=== PATIENT | female | born 1980 | race Caucasian/White ===

== ENCOUNTER 2018-01-16 09:27 | Emergency (ER) | payer BC ==
[2018-01-16] MEDS: KETOROLAC 60 MG/2 ML VIAL (J1885) IM (09:57)
== END 2018-01-16 11:40 | disposition home or self-care (01) ==
LOC: M ED 09:27
DX: R07.89 Other chest pain (principal); M54.9 Dorsalgia, unspecified; Z79.899 Other long term (current) drug therapy
CPT/HCPCS: J1885

== ENCOUNTER 2018-05-02 04:43 | Emergency (ER) | payer OTHER, BC ==
[2018-05-02] MEDS: GI COCKTAIL 50ML BTL(HYOSCYAMINE/MAALOX/LIDOCAINE VISCOUS)(1:3:1) PO (05:46)
[2018-05-02] MEDS: SUCRALFATE 1 GM TAB PO (06:23)
[2018-05-02] MEDS: OMEPRAZOLE 20 MG CAP PO (06:23)
[2018-05-02] MEDS: FAMOTIDINE 20 MG TAB PO (06:23)
== END 2018-05-02 06:23 | disposition home or self-care (01) ==
LOC: M ED 04:43
DX: R10.13 Epigastric pain (principal); M54.9 Dorsalgia, unspecified; Z72.0 Tobacco use; Z79.899 Other long term (current) drug therapy
CPT/HCPCS: 99282

== ENCOUNTER → 2019-05-01 | Outpatient (REF) | payer OTHER, BC ==
[~2019-05-01] MED LIST: CARA1TAB6 PO; CYCL10TA; FAMO20TA PO; HYDR-3715 PO; MOBI4TAB PO; NORC1TAB7; OMEP40CA2 PO; [UNRECOGNIZED DRUG - CODE]
== END ==
LOC: M LABDRAW1 12:00
PROVIDERS: ATTEND Physical Medicine & Rehabilitation
DX: M51.36 Other intervertebral disc degeneration, lumbar region (principal)

== ENCOUNTER → 2025-07-20 | Outpatient (REF) | payer BC ==
[~2025-07-20] MED LIST changes: +CYCL-707; -CYCL10TA; -OMEP40CA2 PO; +OMEP40CA4 PO
[2025-07-20 16:31] LABS: CPK CREATINE PHOSPHOKINASE 147 U/L (34-145); IRON (FE) 109 UG/DL (50-170); MAGNESIUM LEVEL 2.0 MG/DL (1.8-2.4); PERCENT SATURATION 28.7 % (13.2-45.0); PHOSPHORUS LEVEL 3.8 MG/DL (2.5-4.9); TOTAL 25(OH) VITAMIN D 23.2 NG/ML (20.0-100.0)
[2025-07-20 16:32] LABS: RHEUMATOID FACTOR QUANT 4.2 IU/ML (<14)
[2025-07-20 16:33] LABS: VITAMIN B12 LEVEL 294 PG/ML (211-911)
[2025-07-20 16:51] LABS: HEPATITIS B SURFACE ANTIBODY NEGATIVE (POSITIVE)
[2025-07-20 17:05] LABS: HEPATITIS C VIRUS ABY INDEX < 0.02 INDEX (<0.8)
== END ==
LOC: M SFHCRHEU 10:42
PROVIDERS: ATTEND Internal Medicine
DX: R76.8 Other specified abnormal immunological findings in serum (principal); R53.83 Other fatigue; M79.10 Myalgia, unspecified site